=== PATIENT | female | born 1985 | race Caucasian/White ===

== ENCOUNTER → 2016-04-03 | Outpatient (CLI) | payer MEDICAID ==
[2016-04-03 19:41] LABS: Basophils % (A) 1 %; CH 31.1; CHCM 32.4; Eosinophils # (A) 0.1 k/uL (0-0.7); Eosinophils % (A) 2 %; HCT 39.1 % (34.0-46.0); HDW 2.11; HGB 12.6 gm/dL (11.4-16.0); Luc # (Auto) 0.12; Luc % (Auto) 2; Lymphocytes # (A) 1.4 k/uL (1.0-4.8); Lymphocytes % (A) 25 %; MCH 31.1 pg (25.0-35.0); MCHC 32.3 g/dL (31.0-37.0); MCV 96.1 fL (80.0-100.0); Mean Platelet Volume 8.5; Monocytes # (A) 0.4 k/uL (0-1.0); Monocytes % (A) 7 %; Neutrophils # (A) 3.7 k/uL (1.3-7.7); Neutrophils % (A) 65 %; RBC 4.07 m/uL (3.80-5.40); RDW 13.1 % (11.5-15.5); WBC 5.7 k/uL (3.8-10.6)
== END | disposition home or self-care (01) ==
LOC: LABPAT 08:52
PROVIDERS: ATTEND Obstetrics & Gynecology
DX: Z01.812 Encounter for preprocedural laboratory examination (principal)
CPT/HCPCS: 36415; 85025

== ENCOUNTER 2016-04-05 05:57 | Day surgery (SDC) | payer MEDICAID ==
--- NOTE | 2016-04-04 08:00 | P.HPOB ---
History of Present Illness H&P Date: 04/04/16 Chief Complaint: Pt is presenting for a suction D&C due to missed . This patient is a pleasant 30 yr female who initially presented to me for care on March 26. Patient was supposed to be 8 weeks gestation, but ultrasound showed an empty 6 week intrauterine sac. BHCG was >50,000. Repeat ultrasound on April 03 showed a persistent 6 week sac without change , consistent with a missed . I discussed options with Tommy and her , expectant versus D&C and they request suction D&C at this time. Review of Systems Constitutional: Denies chills, Denies fever Ears, nose, mouth and throat: Denies headache, Denies sore throat Cardiovascular: Denies chest pain, Denies shortness of breath Respiratory: Denies cough Gastrointestinal: Denies abdominal pain, Denies diarrhea, Denies nausea, Denies vomiting Genitourinary: Reports Menstruation: Reports amenorrhea Musculoskeletal: Denies myalgias Integumentary: Denies pruritus, Denies rash Neurological: Denies numbness, Denies weakness Psychiatric: Denies anxiety, Denies depression Past Medical History History of Any Multi-Drug Resistant Organisms: None Reported Additional Past Surgical History / Comment(s): Myringotomy tubes. Past Anesthesia/Blood Transfusion Reactions: No Reported Reaction Past Psychological History: No Psychological Hx Reported Smoking Status: Former smoker Past Alcohol Use History: None Reported Past Drug Use History: None Reported Medications and Allergies Home Medications Medication Instructions Recorded Confirmed Type Pnv with Ca,No.72/Iron/FA 1 PO DAILY 04/04/16 History [ Plus Tablet] Allergies Allergy/AdvReac Type Severity Reaction Status Date / Time No Known Allergies Allergy Verified 06/10/14 09:42 Exam - OBG Physical Exam Abdomen: bowel sounds normal, no diffuse tenderness, no bruit present, no guarding noted, no hepatomegaly, no splenomegaly, no mass Vulva: both: normal Vagina: normal moisture, no discharge Cervix: no lesion, no discharge Results Ultrasound times 2 shows 6 week intrauterine gestational sac without pole/ cardiac activity. Assessment and Plan (1) Missed Narrative/Plan: This is a pleasant 30 year with a 6 week missed . Patient is requesting suction D&C for treatment. I have had a long discussion with Tommy in regards to the risks of this surgery: infection, bleeding, possible uterine perforation and she also inquired about Ashermans Syndrome. All of her questions were answered and a written consent was obtained. Status: Acute
[2016-04-04 08:38] VITALS: BMI 33.3
[~2016-04-05 05:57] MED LIST: DEXAMETHASONE SOD PHOSPHATE 10 MG/ML 1 ML VIAL IV ONE; HYDROmorphone 1 MG/ML 1 ML SYRINGE IVP PRN; LACTATED RINGERS 1,000 ML IV SCH; MIDAZOLAM 2 MG/2 ML VIAL IV PRN; ONDANSETRON 4 MG/2 ML VIAL IVP ONE; Pre Op ABX Message 1 EACH MISC MISCELLANE ONE; SCOPOLAMINE 1.5MG/72HR PATCH TRANSDERM ONE
[2016-04-05] MEDS ORDERED: LIDOCAINE 1% 20 ML VIAL (10MG/ML) FOR IV START INTRADERMA ONE (06:41)
[2016-04-05] MEDS ORDERED: SUCCINYLCHOLINE CHLORIDE 100 MG/5 ML SYR IV ONE (06:58)
[2016-04-05] MEDS ORDERED: KETOROLAC 30 MG/ML 1 ML VIAL ONE (06:58)
[2016-04-05] MEDS ORDERED: LIDOCAINE 1% INJ 10MG/ML (20 ML MDV) ONE (06:58)
[2016-04-05] MEDS ORDERED: MIDAZOLAM 2 MG/2 ML VIAL ONE (06:58)
[2016-04-05] MEDS ORDERED: fentaNYL (PF) 50 MCG/ML 2 ML AMP ONE (06:58)
[2016-04-05] MEDS ORDERED: PROPOFOL 10 MG/ML 20 ML VIAL IV ONE (06:58)
--- NOTE | 2016-04-05 07:30 | P.OP ---
Date of Procedure: 04/05/16 Preoperative Diagnosis: Missed 6 weeks Postoperative Diagnosis: Same Procedure(s) Performed: Suction D&C Anesthesia: CHRISTIAN Surgeon: Shaheen Elliott Estimated Blood Loss (ml): 100 Urine output (ml): 200 Pathology: other (Uterine contents) Condition: stable Disposition: PACU Indications for Procedure: Please see dictated H&P for intimate details of this patient's admission. Brief summary is a pleasant 30-year-old 1 para 0 female estimated gestational age 6 weeks with a missed . Patient is presenting for suction D&C for treatment. She and I and her have discussed this procedure in detail including risks of infection, bleeding, possible uterine perforation. All the patient's questions are answered and a written consent is obtained. Operative Findings: Uterine contents were consistent with degenerated products of conception Description of Procedure: This patient is taken to the operating room and laid in the supine position. She subsequent undergoes general endotracheal anesthesia without incident. With an adequate level of anesthesia she's placed in dorsal lithotomy position. She has a vaginal perineal prep and drape. Latter this time is drained for 200 mL of clear urine. With this done examination under anesthesia shows a mid uterus slightly enlarged. A weighted speculum was placed in the posterior vagina. Anterior lip of the cervix is gravid and Allis clamp. I gently dilate the endocervix to allow a 8 curved suction curette easily and the uterine cavity. Suction is applied and a large amount of tissue is removed. Multiple passes until no further tissue was noted. A gentle but thorough curettage of all 4 quadrants is then done and again no further tissue was noted. A final pass of the suction curet confirms what appears to be complete removal of tissue. Bleeding subsides at this point. The Allis clamp was then removed and the weighted speculum was removed. All counts are correct 3. There are no complications. Patient is awakened from anesthesia and taken to the recovery room in satisfactory condition.
[2016-04-05 07:39] VITALS: TEMP 97.6
[2016-04-05 07:47] VITALS: RESP 16
[2016-04-05 08:51] VITALS: BP 105/63; PULSE 69
== END 2016-04-05 09:32 | disposition home or self-care (01) ==
LOC: OR 05:57
PROVIDERS: ATTEND Obstetrics & Gynecology
DX: O02.1 Missed abortion (principal); Z87.891 Personal history of nicotine dependence; K21.9 Gastro-esophageal reflux disease without esophagitis
CPT/HCPCS: 88305; 59820; J2250; J1100; J2405; J2001; J3010; J1885; J0330; J2704

== ENCOUNTER → 2016-06-10 | Outpatient (CLI) | payer MEDICAID ==
[2016-06-10 21:27] LABS: HCG,Quantitative Serum 4308.7 mIU/mL
[2016-06-10 21:45] LABS: HCG,Qualitative Serum Detected
== END ==
LOC: MMGSC 14:05
PROVIDERS: ATTEND Family Medicine
DX: N91.2 Amenorrhea, unspecified (principal)
CPT/HCPCS: 36415; 84702; 84703

== ENCOUNTER → 2016-07-01 | Outpatient (CLI) | payer MEDICAID ==
--- NOTE | 2016-07-01 11:00 | US ---
EXAMINATION TYPE: US OB <= 14 wk fetus DATE OF EXAM: 07/01/2016 10:04 AM COMPARISON: NONE CLINICAL HISTORY: 30-year-old female [id number] CONFIRM DATES, VIABILITY. Date of LMP: 05/01/2016 EXAM PERFORMED: Transabdominal and transvaginal scanning was medically necessary due to adequately e valuate. FINDINGS: EXAM MEASUREMENTS: GESTATIONAL AGE / DATING Physician Established: not established Dates by LMP: (8 weeks/5 days) EDC: 02/05/2017 Dates by First Scan: this is first scan Dates by Current Scan for: (6 weeks/4 days) EDC: 02/20/2017 MATERNAL ANATOMY Uterus: 12.5 x 4.4 x 7.2 cm Right Ovary: 3.1 x 1.7 x 2.9 cm Left Ovary: 2.2 x 1.9 x 2.9 cm Post CDS / Adnexa: wnl Presence of free fluid: none Presence of subchorionic bleed: Relative to the gestational sac size, there is a moderate-sized adjac ent perigestational bleed measuring 1.8 x 0.7 x 1.5 cm along the inferior margin GESTATION / SURVEY CRL: 0.7 cm (6 weeks/4 days) MSD: 1.3 cm (5 weeks/3 days), measures small and is somewhat irregular in contour. 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 There is a viable IUP with heartones. The gestat ional sac is measuring small, and there is a hypoechoic area around the sac.The office was call, and results were given to Yumiko, the nurse as to the age discrepancy and slightly irregular sac. IMPRESSION: 1. Single live intrauterine with estimated gestational age of 8 weeks 5 days by LMP. Curren t ultrasound biometry is small and frankly discordant (6 weeks 4 days) by crown-rump length. 2. The gestational sac is disproportionately smaller and slightly irregular in contour. There is also a moderate-sized perigestational bleed. Recommend short interval follow-up to ensure continued viabi lity.
== END | disposition home or self-care (01) ==
LOC: RADUSWWP 09:36
PROVIDERS: ATTEND Obstetrics & Gynecology
DX: Z36 Encounter for antenatal screening of mother (principal); Z3A.01 Less than 8 weeks gestation of pregnancy
CPT/HCPCS: 76801; 76817

== ENCOUNTER → 2016-07-12 | Outpatient (CLI) | payer MEDICAID ==
[2016-07-12 18:55] LABS: CH 30.8; CHCM 32.7; HCT 39.2 % (34.0-46.0); HDW 1.99; HGB 12.7 gm/dL (11.4-16.0); MCH 30.6 pg (25.0-35.0); MCHC 32.3 g/dL (31.0-37.0); MCV 94.5 fL (80.0-100.0); Mean Platelet Volume 7.8; RBC 4.14 m/uL (3.80-5.40); RDW 12.9 % (11.5-15.5); WBC 8.2 k/uL (3.8-10.6)
[2016-07-12 19:05] LABS: Glucose 92 mg/dL (74-99); Non-African American GFR(MDRD) >60 (>60 ml/min/1.73 sqM)
[2016-07-12 19:32] LABS: Hepatitis B Surface Ag Index 0.06
[2016-07-12 19:48] LABS: HCG,Quantitative Serum 49242.8 mIU/mL
[2016-07-15 05:11] LABS: HIV-1/HIV-2 Ab Screen NONREAC (NON REAC)
[2016-07-16 03:45] LABS: Toxoplasma Antibody (IgG) <3.0 IU/mL (<7.2)
== END ==
LOC: MMGSC 12:32
PROVIDERS: ATTEND Obstetrics & Gynecology
DX: O26.811 Pregnancy related exhaustion and fatigue, first trimester (principal); Z3A.00 Weeks of gestation of pregnancy not specified
CPT/HCPCS: 36415; 82565; 82947; 84702; 85027; 86762; 86777; 86778; 86780; 86850; 86900; 86901; 87340; 87389

== ENCOUNTER 2016-07-18 05:40 | Day surgery (SDC) | payer MEDICAID ==
[2016-07-17 11:26] VITALS: BMI 34.7
--- NOTE | 2016-07-17 12:38 | P.HPOB ---
History of Present Illness H&P Date: 07/17/16 Chief Complaint: Missed - 7 weeks. This patient is a pleasant 30 yr female estimated gestational age 7 weeks who initially had an ultrasound that showed a viable , but subchorionic bleed. A followup ultrasound on July 16 showed a non-viable and the subchorionic bleed was larger. She is having no bleeding or pain. She desires a D&C for treatment at this time. Review of Systems Constitutional: Denies chills, Denies fever Ears, nose, mouth and throat: Denies headache, Denies sore throat Cardiovascular: Denies chest pain, Denies shortness of breath Respiratory: Denies cough Gastrointestinal: Denies abdominal pain, Denies diarrhea, Denies nausea, Denies vomiting Genitourinary: Reports as per HPI, Reports Menstruation: Reports amenorrhea Musculoskeletal: Denies myalgias Past Medical History Past Medical History: Asthma, GERD/Reflux Additional Past Medical History / Comment(s): missed AB x2,hx sports induced asthma History of Any Multi-Drug Resistant Organisms: None Reported Additional Past Surgical History / Comment(s): D&C 04-05-16,tubes ene ear Past Anesthesia/Blood Transfusion Reactions: Motion Sickness Additional Past Anesthesia/Blood Transfusion Reaction / Comment(s): no hx blood transfusion Past Psychological History: No Psychological Hx Reported Smoking Status: Never smoker Past Alcohol Use History: None Reported Past Drug Use History: None Reported - Past Family History Mother Family Medical History: Cancer Additional Family Medical History / Comment(s): skin Medications and Allergies Home Medications Medication Instructions Recorded Confirmed Type Pnv with Ca,No.72/Iron/FA 1 tab PO DAILY 04/04/16 07/17/16 History [ Plus Tablet] Allergies Allergy/AdvReac Type Severity Reaction Status Date / Time No Known Allergies Allergy Verified 07/17/16 11:20 Exam - Vital Signs Vital signs: Intake and Output 07/16/16 07/17/16 07/17/16 22:59 06:59 14:59 Other: Weight 91.626 kg Patient Weight 07/18/16 06:59 Weight 91.626 kg - OBG Physical Exam Abdomen: bowel sounds normal, no diffuse tenderness, no bruit present, no guarding noted, no hepatomegaly, no splenomegaly, no mass Vulva: both: normal Vagina: normal moisture, no discharge Cervix: no lesion, no discharge Uterus: enlarged (Approximately 7 weeks size) Adnexa: both: normal Results Ultrasound in my office on July 16 demonstrates a non-viable , consistent with 7 weeks and ~4 cm subchorionic bleed. Blood type is RH positive. Assessment and Plan (1) Missed Narrative/Plan: This is a pleasant 30 yr female estimated gestational age 7 weeks with a missed requesting suction D&C for treatment. She understands this surgery and risks: infection, bleeding, possible uterine perforation. All of the patients questions have been answered and a written consent obtained. Status: Acute
[~2016-07-18 05:40] MED LIST changes: +LIDOCAINE 1% 20 ML VIAL (10MG/ML) FOR IV START INTRADERMA PRN
[2016-07-18] MEDS ORDERED: KETOROLAC 30 MG/ML 1 ML VIAL ONE (06:41)
[2016-07-18] MEDS ORDERED: MIDAZOLAM 2 MG/2 ML VIAL ONE (06:41)
[2016-07-18] MEDS ORDERED: PROPOFOL 10 MG/ML 20 ML VIAL IV ONE (06:41)
[2016-07-18] MEDS ORDERED: fentaNYL (PF) 50 MCG/ML 2 ML AMP ONE (06:41)
[2016-07-18] MEDS ORDERED: ONDANSETRON 4 MG/2 ML VIAL ONE (06:41)
--- NOTE | 2016-07-18 07:12 | P.OP ---
Date of Procedure: 07/18/16 Preoperative Diagnosis: Missed 7 weeks. Postoperative Diagnosis: Same Procedure(s) Performed: Suction dilation and curettage. Anesthesia: MAC Surgeon: Shaheen Elliott Estimated Blood Loss (ml): 150 IV fluids (ml): 700 Urine output (ml): 100 Pathology: other (Uterine contents) Condition: stable Disposition: PACU Indications for Procedure: Please see dictated H&P for intimate details of this patient's admission. Brief summary this is a pleasant 21-year-old 2 para 0 female approximately 7 weeks gestation with known missed . Patient had an ultrasound initially showed cardiac activity about week or 2 ago and a repeat ultrasound shows no cardiac activity and increased size of a subchorionic bleed. She is requesting suction D&C at this time for treatment. She does understand the surgery and risks including risks of infection, bleeding , possible uterine perforation. All the patient's questions are answered and a written consent is obtained. Operative Findings: This patient had a large amount of degenerating appearing products of conception. Description of Procedure: This patient is taken to the operating room where she is laid in the supine position. She subsequently undergoes general mask anesthesia without incident. With adequate level of anesthesia was placed in the dorsal lithotomy position. She has a vaginal and perineal prep and drape. Examination under anesthesia shows a mid position uterus of approximately 7 weeks size. The bladder is drained this time for 100 mL of clear urine. A weighted speculum was placed in the posterior vagina. The anterior lip of cervix was grabbed with an Allis clamp. Gentle dilation is then done to allow a 8-Singaporean curved suction curette easily into the uterine cavity. Suction is applied and generous amount of tissue is removed after multiple passes. After no further tissue was noted a gentle but thorough curettage of all 4 quadrants is done and again no further tissue was noted. I make 2 more passes with the suction curet and again no further tissue was noted and the bleeding subsides. Procedure is terminated. The Allis clamp and weighted speculum was removed. All counts are correct 3. There are no complications. Patient is awakened from anesthesia and taken to the recovery room in satisfactory condition. Patient's blood type is Rh+ Светлана was not indicated.
[2016-07-18 07:17] VITALS: TEMP 97.5
[2016-07-18] MEDS ORDERED: LACTATED RINGERS 1,000 ML IV ONE (07:35)
[2016-07-18 08:30] VITALS: RESP 16
[2016-07-18 08:47] VITALS: BP 103/73; PULSE 58
== END 2016-07-18 09:00 | disposition home or self-care (01) ==
LOC: OR 05:40
PROVIDERS: ATTEND Obstetrics & Gynecology
DX: O02.1 Missed abortion (principal); Z3A.01 Less than 8 weeks gestation of pregnancy
CPT/HCPCS: 59820; 88305; J2250; J1100; J2405; J3010; J1885; J1170; J2704

== ENCOUNTER → 2016-09-09 | Outpatient (CLI) | payer MEDICAID ==
[2016-09-09 21:15] LABS: Hemoglobin A1C 5.1 % (4.2-6.1)
[2016-09-10 01:16] LABS: ANA w/Reflex to Titer NEGATIVE (NEGATIVE)
== END ==
LOC: MMGSC 08:19
PROVIDERS: ATTEND Obstetrics & Gynecology
DX: N96 Recurrent pregnancy loss (principal)
CPT/HCPCS: 36415; 81240; 81241; 81291; 83036; 84144; 84439; 84443; 86038

== ENCOUNTER → 2016-10-16 | Outpatient (CLI) | payer MEDICAID | END | disposition home or self-care (01) | LOC: MMGSC 11:54 | PROVIDERS: ATTEND Family Medicine | DX: N39.0 Urinary tract infection, site not specified (principal) | CPT/HCPCS: 87086 ==

== ENCOUNTER → 2017-01-30 | Outpatient (CLI) | payer MEDICAID | END | disposition home or self-care (01) | LOC: MMGSC 13:45 | PROVIDERS: ATTEND Family Medicine | DX: N39.0 Urinary tract infection, site not specified (principal); R30.9 Painful micturition, unspecified | CPT/HCPCS: 87086 ==

== ENCOUNTER → 2017-07-10 | Outpatient (CLI) | payer MEDICAID ==
[2017-07-10 18:23] LABS: Basophils % (A) 0 %; Eosinophils # (A) 0.2 k/uL (0-0.7); Eosinophils % (A) 4 %; HCT 40.1 % (34.0-46.0); HGB 12.9 gm/dL (11.4-16.0); Lymphocytes # (A) 1.6 k/uL (1.0-4.8); Lymphocytes % (A) 27 %; MCH 30.1 pg (25.0-35.0); MCHC 32.2 g/dL (31.0-37.0); MCV 93.4 fL (80.0-100.0); Mean Platelet Volume 8.6; Monocytes # (A) 0.3 k/uL (0-1.0); Monocytes % (A) 5 %; Neutrophils # (A) 3.5 k/uL (1.3-7.7); Neutrophils % (A) 62 %; Platelet Count 234 k/uL (150-450); RBC 4.29 m/uL (3.80-5.40); RDW 12.7 % (11.5-15.5); WBC 5.8 k/uL (3.8-10.6)
[2017-07-10 18:31] LABS: ALT 16 U/L (9-52); AST 21 U/L (14-36); Albumin 4.2 g/dL (3.5-5.0); Alkaline Phosphatase 53 U/L (38-126); Anion Gap 13 mmol/L; Blood Urea Nitrogen 13 mg/dL (7-17); Calcium 9.5 mg/dL (8.4-10.2); Carbon Dioxide 24 mmol/L (22-30); Chloride 106 mmol/L (98-107); Cholesterol 172 mg/dL (<200); Glucose 92 mg/dL (74-99); HDL Cholesterol 50 mg/dL (40-60); LDL Cholesterol,Calculated 104 mg/dL (0-99); Potassium 4.9 mmol/L (3.5-5.1); Sodium 143 mmol/L (137-145); Total Bilirubin 0.4 mg/dL (0.2-1.3); Triglycerides 90 mg/dL (<150)
[2017-07-10 18:43] LABS: T4, Free (Free Thyroxine) 0.95 ng/dL (0.78-2.19)
[2017-07-11 01:35] LABS: Vitamin D 25 Hydroxy 40.2 ng/mL (30.0-100.0)
== END | disposition home or self-care (01) ==
LOC: MMGSC 09:40
PROVIDERS: ATTEND Family Medicine
DX: Z00.00 Encounter for general adult medical examination without abnormal findings (principal); R53.83 Other fatigue
CPT/HCPCS: 36415; 80053; 80061; 82306; 82607; 84439; 84443; 85025

== ENCOUNTER → 2018-06-30 | Outpatient (CLI) | payer MEDICAID ==
--- NOTE | 2018-06-30 10:49 | CT ---
EXAMINATION TYPE: CT abdomen pelvis wo/w con DATE OF EXAM: 06/30/2018 HISTORY: Urinary retention CT DLP: 1223.9mGycm Automated Exposure Control for Dose Reduction was Utilized. CONTRAST: CT scan of the abdomen and pelvis is performed without and with IV Contrast, patient injected with 10 0 mL of Isovue 300. COMPARISON: None. FINDINGS: LUNG BASES: Very minimal left atelectasis atelectasis is seen on image 6 medially as there is no asso ciated soft tissue density on soft tissue algorithm. Punctate incidentally noted 2 mm solid pulmonary nodule at the right cardiophrenic angle. LIVER/GB: No radiopaque calculi on the unenhanced images. No evidence of hepatic steatosis. No focal liver lesion is seen. PANCREAS: No significant abnormality is seen. SPLEEN: No significant abnormality is seen. ADRENALS: No significant abnormality is seen. KIDNEYS: On the unenhanced images there is no evidence of nephrolithiasis. No focal renal lesion is s een. The kidneys enhance and excrete symmetrically. No hydronephrosis. Minor calyces and major calyce s appear grossly unremarkable. No uroepithelial thickening. No stricture within the proximal ureters on delayed imaging. No perinephric abscess or fat stranding. Her bladder is grossly distended althoug h without contrast. No focal wall thickening is appreciated. BOWEL: Large degree of fecal stasis limits evaluation of the colon and oral contrast is only seen to the hepatic flexure. No dilated large or small bowel. UTERUS/ADNEXA: No gross abnormality seen. LYMPH NODES: No greater than 1cm abdominal or pelvic lymph nodes are appreciated. OSSEOUS STRUCTURES: No significant abnormality is seen. IMPRESSION: 1. No CT findings to account for the microscopic hematuria. No focal renal mass, no nephrolithiasis, no hydronephrosis, and no uroepithelial thickening. 2. Incidentally noted 2 mm pulmonary nodule at the right costophrenic angle. Follow-up CT thorax coul d be considered at 12 months for surveillance.
== END | disposition home or self-care (01) ==
LOC: RADCTMAIN 07:01
PROVIDERS: ATTEND Urology
DX: R31.29 Other microscopic hematuria (principal)
CPT/HCPCS: 74178; Q9967

== ENCOUNTER → 2019-09-23 | Outpatient (CLI) | payer MEDICAID ==
--- NOTE | 2019-09-23 07:51 | CT ---
EXAMINATION TYPE: CT chest w con DATE OF EXAM: 09/23/2019 COMPARISON: CT abdomen 06/30/2018 HISTORY: Lung nodule CT DLP: 281.0 mGycm Automated exposure control for dose reduction was used. CONTRAST: CT scan of the chest is performed with IV Contrast, patient injected with 100 mL of Isovue 300. FINDINGS: LUNGS: The lungs are grossly clear, there is no concerning parenchymal mass or nodule identified. Pr eviously noted 2 mm nodule is not reproduced. There is chronic stranding right middle lobe likely rel ated to postinflammatory process. There is no pleural effusion or pneumothorax seen. The tracheobron chial tree is patent. MEDIASTINUM: There are no greater than 1 cm hilar or mediastinal lymph nodes. No pericardial effusi on is seen. Thoracic aorta is of normal caliber. The heart is not enlarged. UPPER ABDOMEN: No significant abnormality appreciated. OTHER: No additional significant abnormality is seen. IMPRESSION: Previously noted 2 mm nodule is not reproduced. There is chronic stranding right middle lobe likely related to postinflammatory process.
== END | disposition home or self-care (01) ==
LOC: RADCTMAIN 06:47
PROVIDERS: ATTEND Family Medicine
DX: R91.1 Solitary pulmonary nodule (principal)
CPT/HCPCS: 71260; Q9967

== ENCOUNTER → 2020-01-19 | Outpatient (CLI) | payer MEDICAID | END | disposition home or self-care (01) | LOC: LABWHC1 12:59 | PROVIDERS: ATTEND Pediatrics Pediatric Infectious Diseases | DX: Z03.818 Encounter for observation for suspected exposure to other biological agents ruled out (principal) | CPT/HCPCS: 87635; C9803 ==

== ENCOUNTER → 2020-01-20 | Outpatient (CLI) | payer MEDICAID | END | disposition home or self-care (01) | LOC: LABWHC1 12:38 | PROVIDERS: ATTEND Pediatrics Pediatric Infectious Diseases | DX: Z03.818 Encounter for observation for suspected exposure to other biological agents ruled out (principal) | CPT/HCPCS: 87635; C9803 ==

== ENCOUNTER → 2020-11-16 | Outpatient (CLI) | payer MEDICAID | END | disposition home or self-care (01) | LOC: LABWHC1 14:05 | PROVIDERS: ATTEND Emergency Medicine | DX: U07.1 COVID-19 (principal) | CPT/HCPCS: 87635; C9803 ==